=== PATIENT | female | born 1990 | race Caucasian/White ===

== ENCOUNTER 2024-12-09 13:24 | Emergency (ER) | payer OTHER, SELFPAY ==
--- NOTE | 2024-12-09 13:32 | ED.GENADULT ---
HPI - General Adult General Chief complaint: Unspecified Stated complaint: TIGHT CHEST/HAND AND FOOT TINGLING Time Seen by Provider: 12/09/24 13:35 Source: patient and RN notes reviewed Mode of arrival: ambulatory Limitations: no limitations History of Present Illness HPI narrative: 34-year-old female presents to the [facility] with complaints of left-sided chest tightness radiating into her jaw, left arm. Also reports arm and leg tingling Pain to the posterior lower leg without any swelling, redness or injury. Treatments prior to arrival: none Related Data Allergies Allergy/AdvReac Type Severity Reaction Status Date / Time No Known Allergies Allergy Verified 11/29/11 12:41 Review of Systems Review of Systems: All systems reviewed & are unremarkable except as noted in HPI and below Constitutional: Constitutional: Reports no additional constitutional complaints ENT: Reports system reviewed and no additional complaints, except as documented Cardiovascular: Cardiovascular: Reports as per HPI, Reports chest pain, Denies leg edema, Reports lightheadedness, Reports radiating jaw, neck or arm pain and Denies dyspnea Respiratory: Respiratory: Reports no additional respiratory complaints, Denies chest congestion, Denies cough and Denies dyspnea Musculoskeletal: Musculoskeletal: Reports as per HPI Integumentary/Breasts: Skin/Breast: Reports system reviewed and no additional complaints, except as docu Neurologic: Reports as per HPI PMFSH Comments At the time of my signature, I reviewed and agree with the nursing past medical, surgical, social, and family history. There is no relevant family history pertinent to the patient complaint. Exam Const: General: cooperative, healthy appearing, comfortable, no acute distress, well developed, alert and well nourished Nutritional Appearance: well nourished and obese Orientation/consciousness: patient oriented x3 Limitations: no limitations HENMT: Head: normal to inspection Eyes: General: appearance normal, both eyes and all related structures Alignment and Position: alignment normal Neck: Neck: normal visual inspection, full ROM, no lymphadenopathy and no meningeal signs Chest: Chest palpation & inspection: normal inspection of the chest Resp: Effort & Inspection: normal respiratory effort and able to speak in complete sentences Auscultation: clear to auscultation bilaterally, no crackles, no rales, no rhonchi and no wheezes Cardio: Rate: regular rate Skin: General skin exam: normal color and no rashes or lesions noted Neuro: General: patient oriented x3, gait normal, tone normal, moves all extremities, no meningeal signs and no focal motor deficits Cranial nerves: Yes facial sensation intact/muscles of mastication intact, Yes Equal, round and reactive pupils present, Yes Bilaterally intact EOM present, Yes Nystagmus not present, Yes Normal facial strength present, Yes facial symmetry and Yes Midline tongue present Cognition (Neuro): normal cognition Speech: normal speech Gait exam (Neuro): Normal gait present Extrem: General: normal to inspection, full ROM, capillary refill normal and normal gait Psych: Appearance: grossly normal and well kempt Mental Status: mental status grossly normal Speech and movement: Normal speech and movement present and Clear speech present Affect: normal affect Attitude: cooperative Course Course Level of Care: Express Care Visit Vital Signs Vital signs: Vital Signs Temperature 98.5 F 12/09/24 13:36 Pulse Rate 99 12/09/24 13:36 Respiratory Rate 16 12/09/24 13:36 Blood Pressure 162/93 H 12/09/24 13:36 Pulse Oximetry 99 12/09/24 13:36 Temperature 98.5 F 12/09/24 13:36 Pulse Rate 99 12/09/24 13:36 Respiratory Rate 16 12/09/24 13:36 Blood Pressure 162/93 H 12/09/24 13:36 Pulse Oximetry 99 12/09/24 13:36 Reviewed Transfer Transfered to: [facility] (Per patient request) Transportation: Other (POV, patient request, declined EMS) Transfer rationale: Patient with 2 day history of left-sided chest pain radiating to the left-sided jaw and neck. Also reporting left arm and leg tingling. Sending for higher level care Accepting physician: Spoke with Efren PECK, Dr. Kwok Medical Decision Making MDM Narrative Medical decision making narrative: Patient sitting in exam room. Patient is nontoxic, vitals stable except blood pressure is elevated. No history of elevated blood pressure. Patient complaining of left-sided chest tightness, radiating into the neck, arm and leg. Reports arm and leg tingling. Due to patient's complaints sending for higher level of care. Transfer instructions reviewed with patient and her . Offered EMS which they declined at this time. All questions have been answered, and the patient deny any further questions. Some parts of this dictation were generated by voice recognition software and may contain typographical and/or grammatical inaccuracies. Differential Diagnosis Differential Diagnosis: Hypertension, anxiety, STEMI, non STEMI, electrolyte disturbance, stroke, PE Medical Records Medical records reviewed: Yes I reviewed the external patient's medical records. Vital Signs Vital Signs: Vital Signs Temperature 98.5 F 12/09/24 13:36 Pulse Rate 99 12/09/24 13:36 Respiratory Rate 16 12/09/24 13:36 Blood Pressure 162/93 H 12/09/24 13:36 Pulse Oximetry 99 12/09/24 13:36 Temperature 98.5 F 12/09/24 13:36 Pulse Rate 99 12/09/24 13:36 Respiratory Rate 16 12/09/24 13:36 Blood Pressure 162/93 H 12/09/24 13:36 Pulse Oximetry 99 12/09/24 13:36 Reviewed Lab Data Lab results reviewed: Yes I reviewed the patient's lab results. Labs: Reviewed ECG Data EKG #1: Attestation: I personally reviewed and interpreted this ECG as follows: ECG completion date: 12/09/24 ECG completion time: 13:46 Prior ECG tracings: not available for review Interpretation: Sinus rhythm, possible right ventricular conduction delay, ventricular rate 98, [place] interval 169, QRS duration 97. No ST elevation or depression noted. Critical Care Time Critical Care Time Critical Care Time: No Discharge Plan Discharge Clinical Impression: Left-sided chest pain, Tingling of left upper extremity and left side of face, Elevated blood pressure reading Patient Disposition: Acute Care Hospital Condition: Stable Patient Language: Marshallese Follow-up/Referrals: Maximo,MD Desiree [Primary Care Provider] -
[2024-12-09 13:36] VITALS: BP 162/93; PULSE 99; RESP 16; TEMP 36.9; O2SAT 99
--- NOTE | 2024-12-09 13:39 | ECG_ITS ---
Test Date: 2024-12-09 13:46:57 Measurements Intervals [place] Rate: 98 P: 9 [place]: 169 QRS: 4 QRSD: 97 T: 17 QT: 338 QTc: 432 Interpretive Statements SINUS RHYTHM INCOMPLETE RIGHT BUNDLE BRANCH BLOCK BASELINE ARTIFACT- I, II, III, AVR, AVL, AVF BORDERLINE ECG No previous ECG available for comparison Electronically Signed On 12-10-2024 08:06:58 CDT by Avtar Nevarez D.O.
== END 2024-12-09 13:50 | disposition short-term general hospital (02) ==
LOC: EXPGOSH 13:29
PROVIDERS: Emergency Provider Nurse Practitioner; PCP Family Medicine
DX: R07.9 Chest pain, unspecified (principal); R20.2 Paresthesia of skin; R03.0 Elevated blood-pressure reading, without diagnosis of hypertension
CPT/HCPCS: 93005; 99203; G0463